=== PATIENT | female | born 1990 | race Caucasian/White ===

== ENCOUNTER 2016-09-28 19:15 | Emergency (ER) | payer SELFPAY ==
[~2016-09-28] VITALS: Ht 157.5 cm; Wt 51.5 kg
[2016-09-28 19:16] VITALS: BP 136/82
[2016-09-28] MEDS ORDERED: KETOROLAC 30 MG/1 ML IM ONE (19:30)
[2016-09-28] MEDS ORDERED: IBUPROFEN 200 MG TABLET PO ONE (20:00)
[2016-09-28] MEDS ORDERED: IBUPROFEN 200 MG TABLET ONE (20:37)
== END 2016-09-28 20:47 | disposition home or self-care (01) ==
LOC: ED 20:41
DX: S09.90XA Unspecified injury of head, initial encounter (principal); S16.1XXA Strain of muscle, fascia and tendon at neck level, initial encounter; S06.0X0A Concussion without loss of consciousness, initial encounter; V43.64XA Car passenger injured in collision with van in traffic accident, initial encounter; Y93.89 Activity, other specified; Y92.89 Other specified places as the place of occurrence of the external cause; Y99.8 Other external cause status
CPT/HCPCS: 70450; 72020; 72050; 72072; 99284

== ENCOUNTER → 2018-03-06 | Outpatient (CLI) | payer MEDICAID | END | disposition home or self-care (01) | LOC: CFH 13:32 | PROVIDERS: ATTEND Nurse Practitioner | DX: M75.52 Bursitis of left shoulder (principal) ==

== ENCOUNTER → 2018-04-01 | Outpatient (CLI) | payer MEDICAID | END | disposition home or self-care (01) | LOC: CFH 09:57 | PROVIDERS: ATTEND Nurse Practitioner | DX: M85.88 Other specified disorders of bone density and structure, other site (principal) | CPT/HCPCS: 77080 ==

== ENCOUNTER 2018-04-11 09:47 | Outpatient (CLI) | payer MEDICAID | END 2018-04-11 23:59 | disposition home or self-care (01) | LOC: CFH 09:47 | PROVIDERS: ATTEND Nurse Practitioner | DX: Z12.31 Encounter for screening mammogram for malignant neoplasm of breast (principal); Z80.3 Family history of malignant neoplasm of breast | CPT/HCPCS: 77067 ==